=== PATIENT | female | born 1995 | race Caucasian/White ===

== ENCOUNTER 2021-04-18 03:47 | Emergency (ER) | payer MEDICAID ==
[~2021-04-18] VITALS: Ht 162.6 cm; Wt 109.5 kg
[2021-04-18 03:49] VITALS: BP 122/80
== END 2021-04-18 04:45 | disposition left against medical advice (07) ==
LOC: ED 04:10
DX: R11.10 Vomiting, unspecified (principal); Z53.21 Procedure and treatment not carried out due to patient leaving prior to being seen by health care provider